=== PATIENT | male | born 1985 | race Two or more races ===

== ENCOUNTER 2025-02-07 08:00 | Outpatient (CLI) | payer OTHER ==
[~2025-02-07] VITALS: Ht 180.3 cm; Wt 95.3 kg
[2025-02-07 11:48] VITALS: BP 170/100
== END 2025-02-07 08:05 | disposition home or self-care (01) ==
LOC: RAD 08:00 → ADM 12:30 → EDSTATUS 02-14 12:30 → CIR.AMB 02-14 12:30
PROVIDERS: ATTEND Surgery
DX: K64.2 Third degree hemorrhoids (principal); K62.89 Other specified diseases of anus and rectum; K62.5 Hemorrhage of anus and rectum; K64.4 Residual hemorrhoidal skin tags; I10 Essential (primary) hypertension